=== PATIENT | female | born 1965 | race Caucasian/White ===

== ENCOUNTER → 2020-07-19 15:06 | Outpatient (BNVA) | payer SELFPAY | PROVIDERS: PCP Nurse Practitioner Adult Health; Referring Provider Nurse Practitioner Adult Health; Visit Provider Nurse Practitioner | DX: K21.00 Gastro-esophageal reflux disease with esophagitis, without bleeding (principal); K59.04 Chronic idiopathic constipation; Z86.010 Personal history of colon polyps; Z79.899 Other long term (current) drug therapy | CPT/HCPCS: 99212 ==

== ENCOUNTER → 2020-09-16 13:10 | Outpatient (BNVA) | payer MEDICARE, SELFPAY | PROVIDERS: PCP Nurse Practitioner Adult Health; Visit Provider Nurse Practitioner | DX: K59.04 Chronic idiopathic constipation (principal); K21.00 Gastro-esophageal reflux disease with esophagitis, without bleeding; D12.6 Benign neoplasm of colon, unspecified; Z12.11 Encounter for screening for malignant neoplasm of colon | CPT/HCPCS: Q3014 ==

== ENCOUNTER → 2020-11-16 15:20 | Outpatient (BNVA) | payer MEDICARE, SELFPAY | PROVIDERS: PCP Nurse Practitioner Adult Health; Visit Provider Nurse Practitioner | DX: Z13.89 Encounter for screening for other disorder (principal) | CPT/HCPCS: Q3014 ==

== ENCOUNTER → 2021-05-17 14:37 | Outpatient (BNVA) | payer MEDICARE, SELFPAY | PROVIDERS: PCP Nurse Practitioner Adult Health; Visit Provider Nurse Practitioner | CPT/HCPCS: Q3014 ==

== ENCOUNTER 2022-12-22 15:24 | Emergency (ER) | payer OTHER, MEDICARE, SELFPAY ==
--- NOTE | ~2022-12-22 | CT_ITS ---
EXAMINATION: CT HEAD WITHOUT CONTRAST CLINICAL INFORMATION: Dizziness. Headache. Hypertension. COMPARISON: CT head 01/23/2009 TECHNIQUE: Contiguous axial imaging was performed from the skull base to vertex without intravenous administration of contrast. Coronal and sagittal reformatted images are performed at the CT scanner. [This CT examination was performed using dose optimization techniques as appropriate, variously including the following: *Automated exposure control *Adjustment of mA and/or kV according to patient size (this includes techniques or standardized protocols for targeted exams where dose is matched to indication/reason for exam; i.e. extremities or head) *Use of iterative reconstruction technique] DLP: 578 mGy-cm. FINDINGS: There is no evidence of acute intracranial hemorrhage or territorial infarction. No abnormal mass-effect or midline shift is seen. Puentes to white matter differentiation is well preserved. No extra-axial fluid collections are identified. The ventricles are normal in size. There is no abnormal attenuation within the brain parenchyma. There is no osseous abnormality. The mastoid air cells and visualized portions of the paranasal sinuses are well-aerated. CT/CT head/brain wo IV con IMPRESSION: No acute intracranial pathology.
--- NOTE | ~2022-12-22 | XR_ITS ---
EXAMINATION: XR WRIST, RIGHT XR HAND, RIGHT CLINICAL INFORMATION: Injury on the radial. Unable to separate fingers due to wrapping around them. COMPARISON: None available. TECHNIQUE: PA, lateral, and oblique views of the right wrist and PA, lateral, and oblique views of the right hand FINDINGS: RIGHT WRIST: The bones and soft tissues are normal. No fracture. Alignment is anatomic. Joint spaces are maintained. No erosions or soft tissue calcifications. RIGHT HAND: The bones and soft tissues are normal. No fracture. Alignment is anatomic. Joint spaces are maintained. No erosions or soft tissue calcifications. XR/XR hand wrist RT IMPRESSION: Unremarkable right hand and wrist.
[2022-12-22 15:52] VITALS: BP 230/119; PULSE 86; RESP 17; TEMP 36.4; O2SAT 96; BMI 23.5
--- NOTE | 2022-12-22 15:53 | ED.UPPEXIN ---
HPI - Extremity Injury (Upper) General Chief Complaint: General Medical <RAFAEL Brothers - Last Filed: 12/22/22 16:04> Stated Complaint: R hand inj/work related <RAFAEL Brothers - Last Filed: 12/22/22 16:04> Time Seen by Provider: 12/22/22 18:45 <RAFAEL Brothers - Last Filed: 12/22/22 16:04> Source: patient, RN notes reviewed and old records reviewed <Brett Menezes - Last Filed: 12/22/22 21:07> Mode of arrival: ambulatory <Brett Menezes - Last Filed: 12/22/22 21:07> Limitations: no limitations <Brett Menezes - Last Filed: 12/22/22 21:07> History of Present Illness HPI narrative: 57-year-old female presents for evaluation of a right hand injury. 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 She states that while using both hands to scrape the grill her hand slipped She slammed her right hand against a grill. This caused injury to multiple fingers She has pain to the right 3rd finger with swelling and bruising. She has a small laceration to the right 4th finger and right 2nd finger on the dorsal surface. She does not know when her last tetanus shot was In triage, the patient's blood pressure was noted to be significantly elevated She denies any headache or chest pain. Patient is unsure if she took her antihypertensive medications today No other complaints or concerns at this time <Brett Menezes - Last Filed: 12/22/22 21:07> Related Data Home Medications: Previous Rx's Medication Instructions Recorded pantoprazole 40 mg tablet,delayed 40 mg PO BID #180 tabs 09/29/21 release <RAFAEL Brothers - Last Filed: 12/22/22 16:04> Allergies/Adverse Reactions: Allergies Allergy/AdvReac Type Severity Reaction Status Date / Time latex [LATEX] Allergy Mild RASH Verified 05/17/21 14:38 acetaminophen [Percocet] AdvReac Unknown vision Verified 05/17/21 14:38 impaired, dizzy, vomiting morphine [MORPHINE] AdvReac Unknown SEVERE Verified 05/17/21 14:38 VOMITTING oxycodone [Percocet] AdvReac Unknown vision Verified 05/17/21 14:38 impaired, dizzy, vomiting <RAFAEL Brothers - Last Filed: 12/22/22 16:04> Review of Systems Constitutional: Constitutional: Denies headache(s) <Brett Menezes - Last Filed: 12/22/22 21:07> ENT: Denies headache(s) <Brett Menezes - Last Filed: 12/22/22 21:07> Cardiovascular: Cardiovascular: Denies chest pain and Denies dyspnea <Brett Menezes - Last Filed: 12/22/22 21:07> Respiratory: Respiratory: Denies cough and Denies dyspnea <Brett Menezes - Last Filed: 12/22/22 21:07> Musculoskeletal: Musculoskeletal: Reports arthralgias and Reports joint swelling <Brett Menezes - Last Filed: 12/22/22 21:07> Integumentary/Breasts: Comments: Laceration to right 4th and right 2nd finger <Brett Menezes - Last Filed: 12/22/22 21:07> Neurologic: Denies headache(s) <Brett Menezes Last Filed: 12/22/22 21:07> [facility] Past Medical History Surgical History: Surgical History (Updated 05/17/21 @ 16:49 by SANJIV Benson) History of esophagogastroduodenoscopy (EGD) Hx of colonoscopy Hx of foot surgery Hx of hysterectomy <RAFAEL Brothers - Last Filed: 12/22/22 16:04> Family History Family History: Family History Father Unknown family medical history Mother Unknown family medical history <RAFAEL Brothers - Last Filed: 12/22/22 16:04> Social History Social History: Social History Household Members: Significant Other Alcohol intake: current Alcohol intake frequency: a few times a month Alcohol type: wine Advance Directives: No Advance Directives Information Provided: No <RAFAEL Brothers - Last Filed: 12/22/22 16:04> Physical Exam Vital Signs: Vital Signs: Last Vital Signs Temp 97.6 F 12/22/22 15:52 Pulse 66 12/22/22 20:11 Resp 16 12/22/22 20:11 BP 209/108 H 12/22/22 20:11 Pulse Ox 98 12/22/22 20:11 O2 Del Method Room Air 12/22/22 20:11 BMI result Body Mass Index 23.5 <RAFAEL Brothers - Last Filed: 12/22/22 16:04> Vital Signs: Last Vital Signs Temp 97.6 F 12/22/22 15:52 Pulse 66 12/22/22 20:11 Resp 16 12/22/22 20:11 BP 209/108 H 12/22/22 20:11 Pulse Ox 98 12/22/22 20:11 O2 Del Method Room Air 12/22/22 20:11 BMI result Body Mass Index 23.5 <Brett Menezes - Last Filed: 12/22/22 21:07> Const: General: healthy appearing, comfortable, no acute distress, alert and awake <Brett Santamariay - Last Filed: 12/22/22 21:07> Nutritional Appearance: well nourished <Brett O - Last Filed: 12/22/22 21:07> Orientation/consciousness: patient oriented x3 <Brett OBraxton - Last Filed: 12/22/22 21:07> HEENT: Head: Yes normocephalic and Yes atraumatic <Brett OBraxton - Last Filed: 12/22/22 21:07> Throat: Yes posterior oropharynx normal <Brettjuan pablo Santamariay - Last Filed: 12/22/22 21:07> Eyes: Eyelids: Yes eyelids normal <Brett OBraxton - Last Filed: 12/22/22 21:07> Conjunctivae: conjunctivae normal <Brett OAnam - Last Filed: 12/22/22 21:07> Sclerae: sclerae normal <Brett O - Last Filed: 12/22/22 21:07> Corneas: corneas normal <Brett OBraxton - Last Filed: 12/22/22 21:07> Pupils: Equal, round and reactive pupils present <Brettjuan pablo Santamariay - Last Filed: 12/22/22 21:07> EOM: EOMs intact bilaterally <Brett O Last Filed: 12/22/22 21:07> Neck: Neck: Yes full ROM <Brett O Filed: 12/22/22 21:07> Resp: Effort & Inspection: normal respiratory effort, able to speak in complete sentences, no audible wheezes and not labored <Brett O Filed: 12/22/22 21:07> Auscultation: clear to auscultation bilaterally <Brett O Last Filed: 12/22/22 21:07> Cardio: Rate: regular rate <Brett Jefry Filed: 12/22/22 21:07> Rhythm: regular rhythm < Filed: 12/22/22 21:07> Skin: Other: Patient is a small, 1 cm laceration to the dorsal surface of the right 4th finger over the PIP joint. No active bleeding. There is an additional, 0.5 cm partial-thickness laceration to the dorsal surface of the right 2nd finger. No active bleeding <Brett O Last Filed: 12/22/22 21:07> Neuro: General: patient oriented x3 <Brett O Filed: 12/22/22 21:07> Cranial nerves: Yes CN's II-XII intact bilaterally, Yes Equal, round and reactive pupils present and Yes Bilaterally intact EOM present <Brett O Last Filed: 12/22/22 21:07> Cognition (Neuro): normal cognition <Brett O Filed: 12/22/22 21:07> Extrem: Other: Patient has significant ecchymosis and edema to the right 3rd finger from the MCP joint to the PIP joint. No open wounds, lacerations to this finger. <Brettjuan pablo Santamaria Filed: 12/22/22 21:07> Course Course Course Narrative: RME: 57yo F w/PMHx MS, GERD, c/o R hand injury and laceration s/p cleaning grill & hand slipping and being cut on the metal. Reports lac to 4th digit and pain/swelling to 3rd digit and thumb. Tetanus unknown laceration to R 4th digit PIP, +swelling noted to 3rd digit and ecchymosis noted to thumb BP 230/119 in triage >> patient unsure if she took her BPs meds today. Reports also dizziness and headache. Denies chest pain EKG, labs, head CT, XR & Tdap ordered Full HPI, ROS and PE to be performed by primary ED provider. <RAFAEL Brothers - Last Filed: 12/22/22 16:04> Reevaluation(s) Reevaluation #1: Discussed local anesthetic, the patient opted to declined local anesthetic as she would only need 1 or 2 sutures. <Brett Menezes - Last Filed: 12/22/22 21:07> Time: 19:31 <Brett Menezes - Last Filed: 12/22/22 21:07> Reevaluation #2: We recheck the patient's blood pressure and it is 257/129. She is amenable to further treatment at this time. She still hesitant to be admitted if necessary. We will treat with labetalol 10 mg IV and re-evaluate. She remains asymptomatic <Brett Menezes - Last Filed: 12/22/22 21:07> Time: 19:44 <Brett Menezes - Last Filed: 12/22/22 21:07> Reevaluation #3: Patient's blood pressure at an adequate level now of 185/97. I do not want to drop any further in the patient like to be discharged to follow-up with her primary doctor <Brett Menezes - Last Filed: 12/22/22 21:07> Time: 21:04 <Brett Menezes - Last Filed: 12/22/22 21:07> Medications Administered Discontinued Medications Generic Name Dose Route Start Last Admin Trade Name Freq PRN Reason Stop Dose Admin Clonidine HCl 0.2 mg 12/22/22 18:56 12/22/22 19:05 Clonidine Hcl 0.2 Mg Tablet PO 12/22/22 18:57 0.2 mg ONCE ONE Administration Protocol Diphtheria/Tetanus/Acell Pertussis 0.5 ml 12/22/22 15:53 12/22/22 19:05 Diphth,Pertus(Acell),Tet Adult 0.5 Ml Syringe IM 12/22/22 15:54 0.5 ml .ONCE ONE Administration Labetalol HCl 10 mg 12/22/22 19:41 12/22/22 19:46 Labetalol Hcl 100 Mg/20 Ml Vial IVPUSH 12/22/22 19:42 10 mg ONCE ONE Administration Labetalol HCl 5 mg 12/22/22 20:26 12/22/22 20:33 Labetalol Hcl 100 Mg/20 Ml Vial IVPUSH 12/22/22 20:27 5 mg ONCE ONE Administration <RAFAEL Brothers - Last Filed: 12/22/22 16:04> Medications Administered Discontinued Medications Generic Name Dose Route Start Last Admin Trade Name Freq PRN Reason Stop Dose Admin Clonidine HCl 0.2 mg 12/22/22 18:56 12/22/22 19:05 Clonidine Hcl 0.2 Mg Tablet PO 12/22/22 18:57 0.2 mg ONCE ONE Administration Protocol Diphtheria/Tetanus/Acell Pertussis 0.5 ml 12/22/22 15:53 12/22/22 19:05 Diphth,Pertus(Acell),Tet Adult 0.5 Ml Syringe IM 12/22/22 15:54 0.5 ml .ONCE ONE Administration Labetalol HCl 10 mg 12/22/22 19:41 12/22/22 19:46 Labetalol Hcl 100 Mg/20 Ml Vial IVPUSH 12/22/22 19:42 10 mg ONCE ONE Administration Labetalol HCl 5 mg 12/22/22 20:26 12/22/22 20:33 Labetalol Hcl 100 Mg/20 Ml Vial IVPUSH 12/22/22 20:27 5 mg ONCE ONE Administration <Brett Menezes - Last Filed: 12/22/22 21:07> Medical Decision Making Medical Decision Making MDM Narrative: Patient's blood pressure was elevated to 229/112. She had labs, head CT, EKG, are which was reassuring. This was ordered in triage. When I evaluated the patient she is very adamant that she is not here for her blood pressure and is upset this is being evaluated. I explained to the patient the significance of treating hypertensive urgency. She is currently asymptomatic. Will adjust the patient's laceration to the right 4th finger. Drawer no open fractures. The patient's tetanus was updated. <Brett Menezes - Last Filed: 12/22/22 21:07> Differential Diagnosis Contusion Laceration Hand fracture Dislocation Open fracture Hypertensive urgency Hypertensive emergency <Brett Menezes - Last Filed: 12/22/22 21:07> Lab Data [facility] Lab Attestation statement: I reviewed the patient's lab results. <Brett Menezes - Last Filed: 12/22/22 21:07> Result Diagrams: 12/22/22 16:42 12/22/22 16:42 <RAFAEL Brothers - Last Filed: 12/22/22 16:04> Labs: Lab Results 12/22/22 12/22/22 12/22/22 Range/Units 16:42 16:42 16:42 WBC 6.1 (4.8-10.8) X10*3/uL RBC 4.28 (4.20-5.50) X10*6/uL Hgb 12.6 (12.0-16.0) g/dl Hct 37.9 (37.0-47.0) % MCV 88.6 (80.0-98.0) fL MCH 29.4 (27.0-33.0) pg MCHC 33.2 (31.0-35.0) g/dl RDW 14.6 (11.0-16.0) % Plt Count 329 (160-400) X10*3/uL MPV 11.2 (9.4-12.3) fL Immature Gran % (Auto) 0.2 (0.0-0.4) % Neut % (Auto) 58.8 (45-73) % Lymph % (Auto) 29.7 (20-40) % [place] % (Auto) 8.2 (2-11) % Eos % (Auto) 1.6 (0-4) % Baso % (Auto) 1.5 (0-2) % Lymph # (Auto) 1.8 (1.2-4.9) X10*3/uL [place] # (Auto) 0.5 (0.1-1.2) X10*3/uL Eos # (Auto) 0.1 (0.0-0.4) X10*3/uL Baso # (Auto) 0.1 (0.0-0.2) X10*3/uL Abs Immat Gran (auto) 0.01 (0.00-0.03) X10*3/uL Absolute Neuts (auto) 3.6 (2.0-8.3) x10*3/uL Absolute Nucleated RBC 0.000 (0.0-0.012) X10*3/uL Nucleated RBC % (auto) 0.0 (0.0-0.2) /100WBC PT 10.9 (10.0-13.1) SEC INR 1.0 (0.9-1.1) Sodium 139 (135-145) mmol/L Potassium 3.8 (3.3-5.1) mmol/L Chloride 107 (96-108) mmol/L Carbon Dioxide 24 (22-29) mmol/L Anion Gap 12 (12-20) BUN 16 (9-16) mg/dL Creatinine 0.81 (0.5-1.4) mg/dL Estim Creat Clear Calc 68.1 Estimated GFR > 60 Random Glucose 113 (60-115) mg/dL Calcium 9.4 (8.4-10.2) mg/dL Magnesium 2.1 (1.6-2.6) mg/dL Total Bilirubin 0.5 (0.0-1.0) mg/dL Direct Bilirubin 0.2 (0.0-0.5) mg/dL AST 14 (5-31) U/L ALT 10 (0-31) U/L Alkaline Phosphatase 90 (39-117) U/L Troponin I High Sens (<3.5-17.0) ng/L Total Protein 6.7 (6.5-8.0) g/dL Albumin 4.3 (3.5-5.0) g/dL 12/22/22 Range/Units 16:42 WBC (4.8-10.8) X10*3/uL RBC (4.20-5.50) X10*6/uL Hgb (12.0-16.0) g/dl Hct (37.0-47.0) % MCV (80.0-98.0) fL MCH (27.0-33.0) pg MCHC (31.0-35.0) g/dl RDW (11.0-16.0) % Plt Count (160-400) X10*3/uL MPV (9.4-12.3) fL Immature Gran % (Auto) (0.0-0.4) % Neut % (Auto) (45-73) % Lymph % (Auto) (20-40) % [place] % (Auto) (2-11) % Eos % (Auto) (0-4) % Baso % (Auto) (0-2) % Lymph # (Auto) (1.2-4.9) X10*3/uL [place] # (Auto) (0.1-1.2) X10*3/uL Eos # (Auto) (0.0-0.4) X10*3/uL Baso # (Auto) (0.0-0.2) X10*3/uL Abs Immat Gran (auto) (0.00-0.03) X10*3/uL Absolute Neuts (auto) (2.0-8.3) x10*3/uL Absolute Nucleated RBC (0.0-0.012) X10*3/uL Nucleated RBC % (auto) (0.0-0.2) /100WBC PT (10.0-13.1) SEC INR (0.9-1.1) Sodium (135-145) mmol/L Potassium (3.3-5.1) mmol/L Chloride (96-108) mmol/L Carbon Dioxide (22-29) mmol/L Anion Gap (12-20) BUN (9-16) mg/dL Creatinine (0.5-1.4) mg/dL Estim Creat Clear Calc Estimated GFR Random Glucose (60-115) mg/dL Calcium (8.4-10.2) mg/dL Magnesium (1.6-2.6) mg/dL Total Bilirubin (0.0-1.0) mg/dL Direct Bilirubin (0.0-0.5) mg/dL AST (5-31) U/L ALT (0-31) U/L Alkaline Phosphatase (39-117) U/L Troponin I High Sens 13.4 (<3.5-17.0) ng/L Total Protein (6.5-8.0) g/dL Albumin (3.5-5.0) g/dL <RAFAEL Brothers - Last Filed: 12/22/22 16:04> Lab Results 12/22/22 12/22/22 12/22/22 Range/Units 16:42 16:42 16:42 WBC 6.1 (4.8-10.8) X10*3/uL RBC 4.28 (4.20-5.50) X10*6/uL Hgb 12.6 (12.0-16.0) g/dl Hct 37.9 (37.0-47.0) % MCV 88.6 (80.0-98.0) fL MCH 29.4 (27.0-33.0) pg MCHC 33.2 (31.0-35.0) g/dl RDW 14.6 (11.0-16.0) % Plt Count 329 (160-400) X10*3/uL MPV 11.2 (9.4-12.3) fL Immature Gran % (Auto) 0.2 (0.0-0.4) % Neut % (Auto) 58.8 (45-73) % Lymph % (Auto) 29.7 (20-40) % [place] % (Auto) 8.2 (2-11) % Eos % (Auto) 1.6 (0-4) % Baso % (Auto) 1.5 (0-2) % Lymph # (Auto) 1.8 (1.2-4.9) X10*3/uL [place] # (Auto) 0.5 (0.1-1.2) X10*3/uL Eos # (Auto) 0.1 (0.0-0.4) X10*3/uL Baso # (Auto) 0.1 (0.0-0.2) X10*3/uL Abs Immat Gran (auto) 0.01 (0.00-0.03) X10*3/uL Absolute Neuts (auto) 3.6 (2.0-8.3) x10*3/uL Absolute Nucleated RBC 0.000 (0.0-0.012) X10*3/uL Nucleated RBC % (auto) 0.0 (0.0-0.2) /100WBC PT 10.9 (10.0-13.1) SEC INR 1.0 (0.9-1.1) Sodium 139 (135-145) mmol/L Potassium 3.8 (3.3-5.1) mmol/L Chloride 107 (96-108) mmol/L Carbon Dioxide 24 (22-29) mmol/L Anion Gap 12 (12-20) BUN 16 (9-16) mg/dL Creatinine 0.81 (0.5-1.4) mg/dL Estim Creat Clear Calc 68.1 Estimated GFR > 60 Random Glucose 113 (60-115) mg/dL Calcium 9.4 (8.4-10.2) mg/dL Magnesium 2.1 (1.6-2.6) mg/dL Total Bilirubin 0.5 (0.0-1.0) mg/dL Direct Bilirubin 0.2 (0.0-0.5) mg/dL AST 14 (5-31) U/L ALT 10 (0-31) U/L Alkaline Phosphatase 90 (39-117) U/L Troponin I High Sens (<3.5-17.0) ng/L Total Protein 6.7 (6.5-8.0) g/dL Albumin 4.3 (3.5-5.0) g/dL 12/22/22 Range/Units 16:42 WBC (4.8-10.8) X10*3/uL RBC (4.20-5.50) X10*6/uL Hgb (12.0-16.0) g/dl Hct (37.0-47.0) % MCV (80.0-98.0) fL MCH (27.0-33.0) pg MCHC (31.0-35.0) g/dl RDW (11.0-16.0) % Plt Count (160-400) X10*3/uL MPV (9.4-12.3) fL Immature Gran % (Auto) (0.0-0.4) % Neut % (Auto) (45-73) % Lymph % (Auto) (20-40) % [place] % (Auto) (2-11) % Eos % (Auto) (0-4) % Baso % (Auto) (0-2) % Lymph # (Auto) (1.2-4.9) X10*3/uL [place] # (Auto) (0.1-1.2) X10*3/uL Eos # (Auto) (0.0-0.4) X10*3/uL Baso # (Auto) (0.0-0.2) X10*3/uL Abs Immat Gran (auto) (0.00-0.03) X10*3/uL Absolute Neuts (auto) (2.0-8.3) x10*3/uL Absolute Nucleated RBC (0.0-0.012) X10*3/uL Nucleated RBC % (auto) (0.0-0.2) /100WBC PT (10.0-13.1) SEC INR (0.9-1.1) Sodium (135-145) mmol/L Potassium (3.3-5.1) mmol/L Chloride (96-108) mmol/L Carbon Dioxide (22-29) mmol/L Anion Gap (12-20) BUN (9-16) mg/dL Creatinine (0.5-1.4) mg/dL Estim Creat Clear Calc Estimated GFR Random Glucose (60-115) mg/dL Calcium (8.4-10.2) mg/dL Magnesium (1.6-2.6) mg/dL Total Bilirubin (0.0-1.0) mg/dL Direct Bilirubin (0.0-0.5) mg/dL AST (5-31) U/L ALT (0-31) U/L Alkaline Phosphatase (39-117) U/L Troponin I High Sens 13.4 (<3.5-17.0) ng/L Total Protein (6.5-8.0) g/dL Albumin (3.5-5.0) g/dL <Brett Menezes Last Filed: 12/22/22 21:07> Independent Interpretation I performed an independent interpretation of an: EKG (Sinus rhythm with a rate of 72 beats per minute. No ectopy.) <Brett Menezes Last Filed: 12/22/22 21:07> Procedures Laceration Laceration 1: Site: hand (Right 4th finger) <Brett Menezes Last Filed: 12/22/22 21:07> Side (If applicable): right <Brett Menezes Last Filed: 12/22/22 21:07> Size (cm): 1 <Brett Menezes - Last Filed: 12/22/22 21:07> Description: linear <Brett Menezes - Last Filed: 12/22/22 21:07> Depth: simple, single layer <Brett Menezes - Last Filed: 12/22/22 21:07> Pre-repair: irrigated extensively <Brett Menezes - Last Filed: 12/22/22 21:07> Skin layer closed with: nylon <Brett Menezes - Last Filed: 12/22/22 21:07> Size (cm): 5-0 <Brett Menezes - Last Filed: 12/22/22 21:07> Number of sutures: 2 <Brett Menezes Last Filed: 12/22/22 21:07> Technique: simple, interrupted <Brett Menezes Last Filed: 12/22/22 21:07> Discharge Plan Discharge Clinical Impression: Laceration of hand, right, Hypertensive urgency <RAFAEL Brothers - Last Filed: 12/22/22 16:04> Patient Disposition: Home, Self-Care <RAFAEL Brothers - Last Filed: 12/22/22 16:04> Instructions: Laceration (ED), Hypertensive Crisis (ED) <RAFAEL Brothers Last Filed: 12/22/22 16:04> Additional Instructions: Your blood pressure was significantly elevated today. You arrived at 230/119. You need to talk to her doctor about adjusting your medications as this which a increased risk for serious events such as heart attack, stroke and kidney disease In the meantime you had 2 stitches placed today that can be removed in 7-10 days <RAFAEL Brothers - Last Filed: 12/22/22 16:04> Prescriptions: No Action pantoprazole 40 mg tablet,delayed release (DR/EC) 40 mg PO BID Qty: 180 2RF <RAFAEL Brothers Last Filed: 12/22/22 16:04>
--- NOTE | 2022-12-22 16:02 | ECG_ITS ---
Test Reason : htn Blood Pressure : / mmHG Vent. Rate : 072 BPM Atrial Rate : 072 BPM P-R Int : 150 ms QRS Dur : 068 ms QT Int : 442 ms P-R-T Axes : 068 039 045 degrees QTc Int : 483 ms Normal sinus rhythm Prolonged QT Abnormal ECG No previous ECGs available Referred By: Irais Fatima Electronically Signed By:Sarabjit Isabel
[2022-12-22 16:48] LABS: MANUAL DIFF FLAG NO
[2022-12-22 16:49] LABS: Basophils Absolute Auto 0.1 X10*3/uL (0.0-0.2); Basophils Percent Auto 1.5 % (0-2); Eosinophils Absolute Auto 0.1 X10*3/uL (0.0-0.4); Eosinophils Percent Auto 1.6 % (0-4); Hematocrit 37.9 % (37.0-47.0); Hemoglobin 12.6 g/dl (12.0-16.0); Imm Gran Abs Auto 0.01 X10*3/uL (0.00-0.03); Imm Gran Pct Auto 0.2 % (0.0-0.4); Lymphocytes Absolute Auto 1.8 X10*3/uL (1.2-4.9); Lymphocytes Percent Auto 29.7 % (20-40); Mean Corpuscular HGB Conc 33.2 g/dl (31.0-35.0); Mean Corpuscular Hemoglobin 29.4 pg (27.0-33.0); Mean Corpuscular Volume 88.6 fL (80.0-98.0); Mean Platelet Volume 11.2 fL (9.4-12.3); Monocytes Absolute Auto 0.5 X10*3/uL (0.1-1.2); Monocytes Percent Auto 8.2 % (2-11); Neutrophils Absolute Auto 3.6 x10*3/uL (2.0-8.3); Neutrophils Percent Auto 58.8 % (45-73); Platelet Count 329 X10*3/uL (160-400); Red Blood Count 4.28 X10*6/uL (4.20-5.50); Red Cell Distribution Width 14.6 % (11.0-16.0); White Blood Count 6.1 X10*3/uL (4.8-10.8)
[2022-12-22 16:55] LABS: Prothrombin Time 10.9 SEC (10.0-13.1)
[2022-12-22 17:06] LABS: Alanine Aminotransferase 10 U/L (0-31); Albumin Level 4.3 g/dL (3.5-5.0); Alkaline Phosphatase 90 U/L (39-117); Anion Gap 12 (12-20); Aspartate Amino Transferase 14 U/L (5-31); Bilirubin Direct 0.2 mg/dL (0.0-0.5); Bilirubin Total 0.5 mg/dL (0.0-1.0); Blood Urea Nitrogen 16 mg/dL (9-16); Calcium 9.4 mg/dL (8.4-10.2); Carbon Dioxide 24 mmol/L (22-29); Chloride 107 mmol/L (96-108); Creatinine Clr Calc Pharmacy 68.1; Estimated Glomerular Filt Rate > 60; Glucose Random 113 mg/dL (60-115); Magnesium 2.1 mg/dL (1.6-2.6); Potassium 3.8 mmol/L (3.3-5.1); Sodium 139 mmol/L (135-145); Total Protein 6.7 g/dL (6.5-8.0)
[2022-12-22 17:12] LABS: Troponin-I High Sensitivity 13.4 ng/L (<3.5-17.0)
[2022-12-22 17:59] VITALS: BP 229/112; PULSE 75; RESP 16; O2SAT 97
--- NOTE | 2022-12-22 18:43 | PC.NURSE ---
Pt continues to be hypertensive at this time. States that she is unsure if she took her medications this morning. She reports not being here for her blood pressure, only her hand and she will not be staying for her blood pressure.
[2022-12-22] MEDS: cloNIDine HCL 0.2 MG TABLET PO (19:05)
[2022-12-22] MEDS: Diphth,Pertus(ACell),Tet Adult 0.5 ML SYRINGE IM (19:05)
[2022-12-22] MEDS: Labetalol HCL 100 MG/20 ML VIAL 10 MG IVPUSH (19:46)
[2022-12-22 20:11] VITALS: BP 209/108; PULSE 66; RESP 16; O2SAT 98
[2022-12-22] MEDS: Labetalol HCL 100 MG/20 ML VIAL IVPUSH (20:33)
[2022-12-22 21:05] VITALS: BP 185/97; PULSE 79; RESP 16; O2SAT 97
== END 2022-12-22 21:13 | disposition home or self-care (01) ==
PROVIDERS: Physician Assistant; Emergency Provider Emergency Medicine; PCP Nurse Practitioner Adult Health
DX: S61.214A Laceration without foreign body of right ring finger without damage to nail, initial encounter (principal); W26.8XXA Contact with other sharp object(s), not elsewhere classified, initial encounter; I16.0 Hypertensive urgency; G35 Multiple sclerosis; Y93.E9 Activity, other interior property and clothing maintenance; Y92.13 Military base as the place of occurrence of the external cause; Y99.0 Civilian activity done for income or pay
CPT/HCPCS: 12001; 36415; 70450; 73110; 73130; 80048; 80076; 83735; 84484; 85025; 85610; 90471; 90715; 93005; 96374; 96376; 99284; 99285

== ENCOUNTER → 2023-03-01 09:14 | Outpatient (BNVA) | payer OTHER, MEDICARE, SELFPAY | PROVIDERS: PCP Nurse Practitioner Adult Health; Visit Provider Nurse Practitioner | DX: K21.00 Gastro-esophageal reflux disease with esophagitis, without bleeding (principal); G35 Multiple sclerosis | CPT/HCPCS: 99212 ==

== ENCOUNTER 2023-12-12 08:32 | Outpatient (AMB) | payer MEDICARE, SELFPAY ==
--- NOTE | 2023-12-12 08:35 | MHC.OFFVIS ---
Intake Vital Signs 12/12/23 08:36 Height 5 ft 5 in Weight 134 lb 7.712 oz BMI 22.4 BP 197/99 H Blood Pressure Location Lt brachial Position Sitting Pulse 78 Intake Visit Reasons: f/u cologard Intake Note: Chantal presents in the office as a follow up to her cologard. CC: She is here for results. Allergies latex [LATEX] Allergy (Mild, Verified 12/12/23 08:37) RASH acetaminophen [Percocet] Adverse Reaction (Unknown, Verified 12/12/23 08:37) vision impaired, dizzy, vomiting morphine [MORPHINE] Adverse Reaction (Unknown, Verified 12/12/23 08:37) SEVERE VOMITTING oxycodone [Percocet] Adverse Reaction (Unknown, Verified 12/12/23 08:37) vision impaired, dizzy, vomiting HPI f/u cologard HPI Details Assessment & Plan (1) GERD with esophagitis: Code(s): K21.00 - Gastro-esophageal reflux disease with esophagitis, without bleeding Plan: She continues to have GERD, but admits she eats a lot of red sauces. She has tried weight to effect this but has not helped. BUT she admits she does well if I take the pantoprazole bid. She thought she had to wait 12 hrs before taking the pantoprazole, and she was suffering mostly at night. I educate her that the usual dosing schedule is to take the first dose in the am then just before supper for maximum efficacy. So, this makes her happy. I DID offer to change the medicine, but she wants to try this first. She only drinks decaf coffee. She is due for another Cologuard screening, so we will order this. She has never had polyps and her family history is unclear because she is adopted. However, she prefers this screening before colonoscopy. ROV 6 weeks. (2) Colon cancer screening: Comment: NEGATIVE COLOGUARD 2020 REPEAT 3 YEARS AEB Code(s): Z12.11 - Encounter for screening for malignant neoplasm of colon (3) Multiple sclerosis: Code(s): G35 - Multiple sclerosiss TODAY'S VISIT We review the Cologuard and I let her note is negative. We can repeat this again in 3 years. She continues to do well with her heartburn on her pantoprazole and we will continue this therapy. She just met her biological mother and discovered that she has a FHX of severe diabetes, renal problems and one of her sisters has peritoneal dialysis. She is very concerned about her medical history because she is having some communication difficulties with her primary care provider. She wants more holistic care that seems to be available and would like to see a provider with whom she has had a better report. I tell her she should call the admitting office escort presents this because not everyone can see I would eye on everything and sometimes a different provider is a better fit with the patient's personality history. This should not be viewed in a negative light. In the meantime she has been going without her blood pressure medications because she is fearful of calling the office and I tell her that this is not something she should be afraid of an unless she has received a discharge letter she should call them for continued refills. They still have an obligation to treat her unless they have actively discharged her. She is grateful for the advice and I will see her for our continued care in 6 months. [facility] Medical History Chronic idiopathic constipation Surgical History Hx of foot surgery Hx of hysterectomy Hx of colonoscopy History of esophagogastroduodenoscopy (EGD) Family History Father Unknown family medical history Mother Unknown family medical history Social History Household Members: Significant Other Alcohol intake: current Alcohol intake frequency: a few times a month Alcohol type: wine Review of Systems Const Denies fatigue, Denies fever(s), Denies night sweats, Denies poor appetite and Denies weight loss ENT Reports Normal hearing present, Denies dental pain, Denies dysphagia, Denies hearing loss, Denies mouth pain, Denies odynophagia, Denies throat swelling, Denies tongue swelling and Reports other (Dentition adequate) Card Reports no additional complaints Resp Reports no additional complaints GI Details: Denies abdominal pain, Denies melena, Denies bloating, Denies hematochezia, Denies constipation, Denies GI cramping, Denies dysphagia, Denies excessive flatus, Denies early satiety, Reports heartburn, Denies diarrhea, Denies nausea, Denies odynophagia, Denies vomiting and Denies hematemesis Skin/Breast Denies pruritus, Denies lesions, Denies rash and Denies jaundice Neuro Reports Normal hearing present and Denies Abnormal speech present Psych Reports anxiety Endo Denies fatigue Aller/Immun Denies throat swelling and Denies tongue swelling Physical Exam Vital Signs: Last Vital Signs Pulse 78 12/12/23 08:36 BP 197/99 H 12/12/23 08:36 BMI result Body Mass Index 22.4 Const General: cooperative, no acute distress, well developed and well groomed Nutritional Appearance: well nourished and overweight Orientation/consciousness: oriented to person, oriented to place and oriented to time Limitations: No language barrier HEENT Head: Yes normocephalic and Yes atraumatic Eyes General: appearance normal, both eyes and all related structures Pupils: Equal, round and reactive pupils present Neck Neck: Yes normal visual inspection and Yes no lymphadenopathy Thyroid: Thyroid normal Resp Effort & Inspection: normal respiratory effort and able to speak in complete sentences Auscultation: clear to auscultation bilaterally Cardio Rate: regular rate Rhythm: regular rhythm Heart sounds: Normal, physiologic split S2 sound present Peripheral pulses: radial pulses present and posterior tibial pulses present GI Inspection: No distended and No Abdominal panniculus present Palpation (GI): Soft to palpation, nontender, no guarding, not rigid and No hepatosplenomegaly present Percussion: Yes normal to percussion Auscultation: normal bowel sounds Rectal Exam - Female: deferred Skin General skin exam: no rashes or lesions noted, turgor normal, skin not dry, no jaundice, No spider nevi and no striae Rashes: no rashes Nails: normal Neuro General: oriented to person, oriented to place and oriented to time Cranial nerves: Yes Equal, round and reactive pupils present and Yes Normal hearing present Speech: No Abnormal speech present Extrem General: Yes normal to inspection, No clubbing, No cyanosis and No edema Psych Appearance: grossly normal and well kempt Mental Status: mental status grossly normal Speech and movement: Normal speech and movement present Affect: normal affect Attitude: cooperative Thought process: Normal thought process present and not confabulating Thought content: Normal thought content present Insight: Fair insight present (Psych) Judgement: Fair judgement present (Psych) Assessment & Plan Assessment & Plan (1) GERD with esophagitis: Code(s): K21.00 - Gastro-esophageal reflux disease with esophagitis, without bleeding (2) Colon cancer screening: Comment: 2023= negative Cologuard repeat in 3 years; NEGATIVE COLOGUARD 2019 REPEAT 3 YEARS AEB Code(s): Z12.11 - Encounter for screening for malignant neoplasm of colon Plan We review the Cologuard and I let her note is negative. We can repeat this again in 3 years. She continues to do well with her heartburn on her pantoprazole and we will continue this therapy. She just met her biological mother and discovered that she has a FHX of severe diabetes, renal problems and one of her sisters has peritoneal dialysis. She is very concerned about her medical history because she is having some communication difficulties with her primary care provider. She wants more holistic care that seems to be available and would like to see a provider with whom she has had a better report. I tell her she should call the admitting office escort presents this because not everyone can see I would eye on everything and sometimes a different provider is a better fit with the patient's personality history. This should not be viewed in a negative light. In the meantime she has been going without her blood pressure medications because she is fearful of calling the office and I tell her that this is not something she should be afraid of an unless she has received a discharge letter she should call them for continued refills. They still have an obligation to treat her unless they have actively discharged her. She is grateful for the advice and I will see her for our continued care in 6 months. Medications: Refilled pantoprazole 40 mg PO BID 180 tabs 2RF K21.00 - Gastro-esophageal reflux disease with esophagitis, without bleeding Coding Level of Care Code Est Pt Level 3 (57883) Diagnoses GERD with esophagitis K21.00 Colon cancer screening Z12.11
[2023-12-12 08:36] VITALS: BP 197/99; PULSE 78; BMI 22.4
== END 2023-12-12 09:14 | disposition home or self-care (01) ==
PROVIDERS: PCP Nurse Practitioner Adult Health; Visit Provider Nurse Practitioner
DX: K21.00 Gastro-esophageal reflux disease with esophagitis, without bleeding (principal); Z12.11 Encounter for screening for malignant neoplasm of colon
CPT/HCPCS: 99213

== ENCOUNTER → 2023-12-12 08:32 | Outpatient (BNVA) | payer MEDICARE, SELFPAY | PROVIDERS: PCP Nurse Practitioner Adult Health; Visit Provider Nurse Practitioner | DX: Z12.11 Encounter for screening for malignant neoplasm of colon (principal); K21.00 Gastro-esophageal reflux disease with esophagitis, without bleeding | CPT/HCPCS: 99212 ==

== ENCOUNTER 2024-06-11 09:04 | Outpatient (AMB) | payer MEDICARE, SELFPAY ==
[2024-06-11 09:07] VITALS: BP 161/93; PULSE 72; BMI 29.4
--- NOTE | 2024-06-11 09:07 | MHC.OFFVIS ---
Vital Signs 06/11/24 09:07 Height 5 ft 5 in Weight 176 lb 12.972 oz BMI 29.4 BP 161/93 H Blood Pressure Location Lt brachial Position Sitting Pulse 72 Intake Visit Reasons: 6 months follow up Intake Note: Chantal presents to in office 6 months follow up of GERD. CC: Patient reports doing well, but she states that she would like to discuss if she needs Linzess again, because the probiotics she is taking are helping but are too expensive. Patient also mentions some discomfort from her left ear. Barge Pilot Required: No Accompanied by: Self / Same As Patient Allergies latex [LATEX] Allergy (Mild, Verified 06/11/24 09:17) RASH acetaminophen [Percocet] Adverse Reaction (Unknown, Verified 06/11/24 09:17) vision impaired, dizzy, vomiting morphine [MORPHINE] Adverse Reaction (Unknown, Verified 06/11/24 09:17) SEVERE VOMITTING oxycodone [Percocet] Adverse Reaction (Unknown, Verified 06/11/24 09:17) vision impaired, dizzy, vomiting HPI HPI 6 months follow up: Details: Assessment & Plan (1) GERD with esophagitis: Code(s): K21.00 - Gastro-esophageal reflux disease with esophagitis, without bleeding (2) Colon cancer screening: Comment: 2023= negative Cologuard repeat in 3 years; NEGATIVE COLOGUARD 2019 REPEAT 3 YEARS AEB Code(s): Z12.11 - Encounter for screening for malignant neoplasm of colon Plan We review the Cologuard and I let her note is negative. We can repeat this again in 3 years. She continues to do well with her heartburn on her pantoprazole and we will continue this therapy. She just met her biological mother and discovered that she has a FHX of severe diabetes, renal problems and one of her sisters has peritoneal dialysis. She is very concerned about her medical history because she is having some communication difficulties with her primary care provider. She wants more holistic care that seems to be available and would like to see a provider with whom she has had a better report. I tell her she should call the public records officer presents this because not everyone can see I would eye on everything and sometimes a different provider is a better fit with the patient's personality history. This should not be viewed in a negative light. In the meantime she has been going without her blood pressure medications because she is fearful of calling the office and I tell her that this is not something she should be afraid of an unless she has received a discharge letter she should call them for continued refills. They still have an obligation to treat her unless they have actively discharged her. She is grateful for the advice and I will see her for our continued care in 6 months. Medications: Refilled pantoprazole 40 mg PO BID 180 tabs 2RF K21.00 - Gastro-esophageal reflux disease with esophagitis, without bleeding TODAY'S VISIT She has had a lot of medication changes. She has a new PCP and she straightened me out. She has a new statin, new BP meds and is on ari for her RLS and general pain from past traumas. She also is on buspar and this is new. With these changes she is sleeping better and she does not feel any s/e. She thanks me for advising her to get a primary care provider with whom she can have better and more open communications and she feels that this has been tremendously helpful in managing all of her chronic health conditions. I had provided her a letter stating her concerns as there seemed to be difficulty communicating what she was trying to get across to her providers in terms of her treatment goals. She thought that this was quite helpful. She is not moving her bowels well, and she would like to try going back on LInzess - we will start at 72mcg and she can continue her probiotics. She is fairly well controlled on her pantoprazole bid with occasional break though. This would be expected, and it is worse when she does not move her bowels. Doorknob c/o ear itching, examined acetic otic. gtt ROV 8 weeks. [facility] Medical History (Updated 06/11/24 @ 10:02 by SANJIV Benson) Chronic idiopathic constipation Surgical History Hx of foot surgery Hx of hysterectomy Hx of colonoscopy History of esophagogastroduodenoscopy (EGD) Family History Father Unknown family medical history Mother Unknown family medical history Social History Household Members: Significant Other Alcohol intake: current Alcohol intake frequency: a few times a month Alcohol type: wine Review of Systems Const Denies fatigue, Denies fever(s), Denies night sweats, Denies poor appetite, Reports weight gain and Denies weight loss ENT Reports Normal hearing present, Denies dental pain, Denies dysphagia, Reports otalgia (With itching), Denies hearing loss, Denies mouth pain, Denies odynophagia, Denies throat swelling, Denies tongue swelling and Reports other (Dentition adequate) Card Reports no additional complaints Resp Reports no additional complaints GI Details: Denies abdominal pain, Denies melena, Denies bloating, Denies hematochezia, Reports constipation, Denies GI cramping, Denies dysphagia, Denies excessive flatus, Denies early satiety, Reports heartburn, Denies diarrhea, Denies nausea, Denies odynophagia, Denies vomiting and Denies hematemesis Musc Reports back pain, Reports myalgias and Reports arthralgias Skin/Breast Denies pruritus, Denies lesions, Denies rash and Denies jaundice Neuro Reports Normal hearing present, Denies Abnormal speech present and Reports restless legs Psych Reports abnormal sleep pattern and Reports anxiety Endo Denies fatigue Aller/Immun Denies throat swelling and Denies tongue swelling Physical Exam Vital Signs: Last Vital Signs Pulse 72 06/11/24 09:07 BP 161/93 H 06/11/24 09:07 BMI result Body Mass Index 29.4 Const General: cooperative, no acute distress, well developed and well groomed Nutritional Appearance: average body habitus and well nourished Orientation/consciousness: oriented to person, oriented to place and oriented to time Limitations: No language barrier HEENT Head: Yes normocephalic and Yes atraumatic Ears: hearing grossly normal bilaterally, external ears normal and other (Ear canals reddened bilaterally with some fullness of the TM) Eyes General: appearance normal, both eyes and all related structures Pupils: Equal, round and reactive pupils present Neck Neck: Yes normal visual inspection and Yes no lymphadenopathy Thyroid: Thyroid normal Resp Effort & Inspection: normal respiratory effort and able to speak in complete sentences Auscultation: clear to auscultation bilaterally Cardio Rate: regular rate Rhythm: regular rhythm Heart sounds: Normal, physiologic split S2 sound present Peripheral pulses: radial pulses present and posterior tibial pulses present GI Inspection: No distended, No Abdominal panniculus present and Yes obesity Palpation (GI): Soft to palpation, nontender, no guarding, not rigid and No hepatosplenomegaly present Percussion: Yes normal to percussion Auscultation: normal bowel sounds Rectal Exam - Female: deferred Skin General skin exam: no rashes or lesions noted, turgor normal, skin not dry, no jaundice, No spider nevi and no striae Rashes: no rashes Nails: normal Neuro General: oriented to person, oriented to place and oriented to time Cranial nerves: Yes Equal, round and reactive pupils present and Yes Normal hearing present Speech: No Abnormal speech present Extrem General: Yes normal to inspection, No clubbing, No cyanosis and No edema Psych Appearance: grossly normal and well kempt Mental Status: mental status grossly normal Speech and movement: Normal speech and movement present Affect: normal affect Attitude: cooperative Thought process: Normal thought process present and not confabulating Thought content: Normal thought content present Insight: Fair insight present (Psych) and Limited insight present (Psych) Judgement: Fair judgement present (Psych) and Limited judgement present (Psych) Assessment & Plan Assessment & Plan (1) GERD with esophagitis: Code(s): K21.00 - Gastro-esophageal reflux disease with esophagitis, without bleeding Category: Medical (2) Chronic idiopathic constipation: Code(s): K59.04 - Chronic idiopathic constipation Category: Medical (3) Fungal otitis externa: Code(s): B36.9 - Superficial mycosis, unspecified; H62.40 - Otitis externa in other diseases classified elsewhere, unspecified ear Category: Medical Plan She has had a lot of medication changes. She has a new PCP and she straightened me out. She has a new statin, new BP meds and is on ari for her RLS and general pain from past traumas. She also is on buspar and this is new. With these changes she is sleeping better and she does not feel any s/e. She thanks me for advising her to get a primary care provider with whom she can have better and more open communications and she feels that this has been tremendously helpful in managing all of her chronic health conditions. I had provided her a letter stating her concerns as there seemed to be difficulty communicating what she was trying to get across to her providers in terms of her treatment goals. She thought that this was quite helpful. She is not moving her bowels well, and she would like to try going back on LInzess - we will start at 72mcg and she can continue her probiotics. She is fairly well controlled on her pantoprazole bid with occasional break though. This would be expected, and it is worse when she does not move her bowels. Doorknob c/o ear itching, examined acetic otic. gtt ROV 8 weeks. Medications: New linaclotide (Linzess) 72 mcg PO QAM 30 caps 6RF K59.04 - Chronic idiopathic constipation hydrocortisone-acetic acid 1-2 % 4 drps otic (ear) left TID 10 mL 0RF B36.9 - Superficial mycosis, unspecified, H62.40 - Otitis externa in other diseases classified elsewhere, unspecified ear Refilled pantoprazole 40 mg PO BID 180 tabs 2RF K21.00 - Gastro-esophageal reflux disease with esophagitis, without bleeding Coding Level of Care Code Est Pt Level 3 (27726) Complex EM visit Add On G2211 Diagnoses GERD with esophagitis K21.00 Chronic idiopathic constipation K59.04 Fungal otitis externa B36.9; H62.40
== END 2024-06-11 10:03 | disposition home or self-care (01) ==
PROVIDERS: PCP Student in an Organized Health Care Education/Training Program; Visit Provider Nurse Practitioner
DX: K21.00 Gastro-esophageal reflux disease with esophagitis, without bleeding (principal); K59.04 Chronic idiopathic constipation; B36.9 Superficial mycosis, unspecified; H62.42 Otitis externa in other diseases classified elsewhere, left ear
CPT/HCPCS: 99213; G2211

== ENCOUNTER → 2024-06-11 09:04 | Outpatient (BNVA) | payer MEDICARE, SELFPAY | PROVIDERS: PCP Nurse Practitioner Adult Health; Visit Provider Nurse Practitioner | DX: K21.00 Gastro-esophageal reflux disease with esophagitis, without bleeding (principal); K59.04 Chronic idiopathic constipation; B36.9 Superficial mycosis, unspecified; H62.40 Otitis externa in other diseases classified elsewhere, unspecified ear | CPT/HCPCS: 99212 ==

== ENCOUNTER 2025-08-04 14:13 | Outpatient (AMB) | payer MEDICARE, SELFPAY ==
[2025-08-04 14:34] VITALS: BP 133/80; PULSE 79; BMI 29.0
--- NOTE | 2025-08-04 14:34 | MHC.OFFVIS ---
Vital Signs 08/04/25 14:34 Height 5 ft 5 in Weight 174 lb BMI 29.0 BP 133/80 Blood Pressure Location Rt brachial Position Sitting Pulse 79 Intake Visit Reasons: Follow up GERD/CIC Intake Note: Chantal presents in follow up of GERD and CIC. CC: Patient reports that her heartburn is really bad and she is taking TUMS life 3-4 times a day. She also c/o constipation alternating with diarrhea. 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 Accompanied by: Self / Same As Patient Allergies latex (LATEX) Allergy (Mild, Verified 06/11/24 09:17) RASH acetaminophen (Percocet) Adverse Reaction (Unknown, Verified 06/11/24 09:17) vision impaired, dizzy, vomiting morphine (MORPHINE) Adverse Reaction (Unknown, Verified 06/11/24 09:17) SEVERE VOMITTING oxycodone (Percocet) Adverse Reaction (Unknown, Verified 06/11/24 09:17) vision impaired, dizzy, vomiting HPI HPI Follow up GERD/CIC: Details: Assessment & Plan (1) GERD with esophagitis: Code(s): K21.00 - Gastro-esophageal reflux disease with esophagitis, without bleeding Category: Medical (2) Chronic idiopathic constipation: Code(s): K59.04 - Chronic idiopathic constipation Category: Medical (3) Fungal otitis externa: Code(s): B36.9 - Superficial mycosis, unspecified; H62.40 - Otitis externa in other diseases classified elsewhere, unspecified ear Category: Medical Plan She has had a lot of medication changes. She has a new PCP and she straightened me out. She has a new statin, new BP meds and is on ari for her RLS and general pain from past traumas. She also is on buspar and this is new. With these changes she is sleeping better and she does not feel any s/e. She thanks me for advising her to get a primary care provider with whom she can have better and more open communications and she feels that this has been tremendously helpful in managing all of her chronic health conditions. I had provided her a letter stating her concerns as there seemed to be difficulty communicating what she was trying to get across to her providers in terms of her treatment goals. She thought that this was quite helpful. She is not moving her bowels well, and she would like to try going back on LInzess - we will start at 72mcg and she can continue her probiotics. She is fairly well controlled on her pantoprazole bid with occasional break though. This would be expected, and it is worse when she does not move her bowels. Doorknob c/o ear itching, examined acetic otic. gtt ROV 8 weeks. Medications: New linaclotide (Linzess) 72 mcg PO QAM 30 caps 6RF K59.04 - Chronic idiopathic constipation hydrocortisone-acetic acid 1-2 % 4 drps otic (ear) left TID 10 mL 0RF B36.9 - Superficial mycosis, unspecified, H62.40 - Otitis externa in other diseases classified elsewhere, unspecified ear Refilled pantoprazole 40 mg PO BID 180 tabs 2RF K21.00 - Gastro-esophageal reflux disease with esophagitis, without bleeding Today's visit [facility] Medical History Chronic idiopathic constipation Surgical History Hx of foot surgery Hx of hysterectomy Hx of colonoscopy History of esophagogastroduodenoscopy (EGD) Family History Father Unknown family medical history Mother Unknown family medical history Social History Household Members: Significant Other Alcohol intake: current Alcohol intake frequency: a few times a month Alcohol type: wine Physical Exam Vital Signs: Last Vital Signs Pulse 79 08/04/25 14:34 BP 133/80 08/04/25 14:34 BMI result Body Mass Index 29.0 Assessment & Plan Assessment & Plan (1) GERD with esophagitis: Code(s): K21.00 - Gastro-esophageal reflux disease with esophagitis, without bleeding Category: Medical Plan Her last GI regimen with pantoprazole twice a day, <del>Linzess</del> <del>72</del> micro g and Proctosol cream. Subjective Patient presents with uncontrolled heartburn/acid reflux. Reports longstanding GERD previously controlled with pantoprazole that has progressively lost efficacy; currently taking pantoprazole twice daily without relief. Symptoms occur regardless of eating or fasting, with prominent nocturnal reflux despite head-of-bed elevation. Uses Tums frequently (4 at a time, including middle of the night) with incomplete relief. Describes episodes of regurgitation with sour/acidic taste disrupting sleep and requiring prolonged rinsing/brushing. Notes weight fluctuation (previously down to approximately 130 lb at 5'5 with persistent heartburn; subsequently regained some weight and symptoms worsened). Also reports variable bowel habits?alternating days of constipation (hard to pass) with days of watery stools?attempting increased water intake and fruits/vegetables; has tried fiber supplements in the past. Did not start previously discussed Linzess due to cost concerns. Objective Assessment & Plan Gastroesophageal reflux disease (GERD), inadequate control on current PPI: Persistent and nocturnal reflux with regurgitation despite pantoprazole twice daily and lifestyle measures (head-of-bed elevation), consistent with PPI-refractory GERD. - Switch to lansoprazole; prescription sent to pharmacy. - Follow up in approximately 8 weeks (post-holidays) to assess response. - Reviewed that lansoprazole has different metabolism; if inadequate response, will proceed with trials of additional PPIs as needed. Insurance typically requires failure of multiple PPIs before approval of advanced/refractory therapies; will coordinate step therapy as indicated. Alternating bowel habits with constipation and intermittent loose stools: Patient reports variable stools despite hydration, produce intake, and prior fiber trials. No new alarming features discussed today. - Reinforced consideration of fiber supplementation as first-line for mixed bowel patterns if patient willing to retry. - No new prescription today; may revisit if symptoms persist or worsen. Tinnitus concern: Brought up briefly at end of visit. - Advised to address with primary care; can discuss at a future visit for general input as needed. Medications: New lansoprazole 30 mg PO BID 60 caps 6RF K21.00 - Gastro-esophageal reflux disease with esophagitis, without bleeding Discontinued linaclotide (Linzess) Discontinued Reason: Doctor's Order 72 mcg PO QAM 30 caps 6RF K59.04 - Chronic idiopathic constipation pantoprazole Discontinued Reason: Doctor's Order 40 mg PO BID 180 tabs 0RF K21.00 - Gastro-esophageal reflux disease with esophagitis, without bleeding Coding Level of Care Code Est Pt Level 3 (90326) Diagnoses GERD with esophagitis K21.00
== END 2025-08-04 15:13 | disposition home or self-care (01) ==
LOC: HO.HGI 14:14
PROVIDERS: PCP Student in an Organized Health Care Education/Training Program; Visit Provider Nurse Practitioner
DX: K21.00 Gastro-esophageal reflux disease with esophagitis, without bleeding (principal)
CPT/HCPCS: 99213

== ENCOUNTER → 2025-08-04 14:13 | Outpatient (BNVA) | payer MEDICARE, SELFPAY | PROVIDERS: PCP Student in an Organized Health Care Education/Training Program; Visit Provider Nurse Practitioner | DX: K21.00 Gastro-esophageal reflux disease with esophagitis, without bleeding (principal); K59.04 Chronic idiopathic constipation; B36.9 Superficial mycosis, unspecified; H62.40 Otitis externa in other diseases classified elsewhere, unspecified ear | CPT/HCPCS: 99212 ==